=== PATIENT | male | born 1985 | race Caucasian/White ===

== ENCOUNTER 2016-09-15 18:48 | Inpatient (IN) | payer OTHER ==
[2016-09-15] VITALS (178 sets, daily range): BP systolic 126–145; BP diastolic 60–88; PULSE 68–82; TEMP 97.9–98.1; O2SAT 95–99
[~2016-09-15] VITALS: Ht 177.8 cm; Wt 116.8 kg
[2016-09-15] MEDS ORDERED: DESYREL 50MG50 MG PO (19:49)
[2016-09-15] MEDS ORDERED: NORVASC2.5 MG PO (19:49)
[2016-09-15] MEDS ORDERED: HCTZ12.5TAB PO (19:49)
[2016-09-15] MEDS ORDERED: LAMICTAL CD5 MG PO (19:50)
[2016-09-15 20:45] LABS: PARTIAL THROMBOPLASTIN TIME 182.4 SECONDS (26.0-37.0)
[2016-09-15] MEDS ORDERED: LAMICTAL200 MG PO (21:59)
[2016-09-15 23:15] LABS: PARTIAL THROMBOPLASTIN TIME 34.7 SECONDS (26.0-37.0)
[2016-09-16] VITALS (566 sets, daily range): BP systolic 101–142; BP diastolic 68–100; PULSE 64–134; TEMP 97.6–98; O2SAT 92–100
[2016-09-16 06:18] LABS: BASO # 0.1 (0.0-0.2); BASO % 0.6 % (0.0-2.0); EOS # 0.1 (0.0-0.7); EOS % 1.1 % (0-4.0); GRAN # 4.4 (1.4-6.5); GRAN % 55.2 % (42.2-75.2); HEMATOCRIT 48.4 % (42.0-52.0); HEMOGLOBIN 16.5 g/dl (13.5-18.0); LYMPH # 2.8 (1.2-3.4); LYMPH % 34.5 % (20.0-51.0); MEAN CELL VOLUME 83 fl (80.0-100.0); MEAN CORPUSCULAR HEMOGLOBIN 28 pg (27.0-31.0); MEAN CORPUSCULAR HGB CONC 34 g/dl (33.0-37.0); MEAN PLATELET VOLUME 9.5 fl (7.4-10.4); MONO # 0.6 (0.1-0.6); PLATELET COUNT 214 K/mm3 (130-400); RED BLOOD COUNT 5.82 M/mm3 (4.20-5.60); REDCELL DISTRIBUTION WIDTH-CV 13.1 % (11.5-14.5)
[2016-09-16 06:29] LABS: ADJUSTED CALCIUM 9.1 mg/dL (8.4-10.2); ALANINE AMINOTRANSFERASE 32 U/L (21-72); ALBUMIN 4.1 gm/dL (3.5-5.0); ALKALINE PHOSPHATASE 60 U/L (50-136); ANION GAP 10 mmol/L (7-16); BLOOD UREA NITROGEN 17 mg/dL (9-20); CALCIUM 9.2 mg/dL (8.4-10.2); CARBON DIOXIDE 27 mmol/L (22-30); CHLORIDE 104 mmol/L (98-107); CREATININE, serum 1.04 mg/dL (0.66-1.25); GLUCOSE 101 mg/dL (74-106); POTASSIUM 4.1 mmol/L (3.4-5.0); SODIUM 141 mmol/L (137-145); TOTAL PROTEIN 6.8 gm/dL (6.4-8.2)
[2016-09-16 06:46] LABS: TROPONIN-I < 0.012 ng/mL (0.000-0.034)
[2016-09-16] MEDS ORDERED: PROTONIX 40MG T40 MG PO (15:10)
[2016-09-16] MEDS ORDERED: CARDIZEM 60MG T60 MG PO (15:10)
[2016-09-16] MEDS ORDERED: ELIQUIS 5MG PO (15:12)
[2016-09-16] MEDS ORDERED: MULTAQ400 MG PO (16:13)
[2016-09-16 16:51] LABS: BILIRUBIN,DIRECT 0.7 mg/dL (0.0-0.4)
== END 2016-09-16 16:56 | disposition home or self-care (01) | DRG 310 ==
LOC: IMCU 18:48
PROVIDERS: Internal Medicine
PROC: 5A2204Z Restoration of Cardiac Rhythm, Single (ICD-10-PCS; principal; 2016-09-16)
DX: I48.91 Unspecified atrial fibrillation (principal); I10 Essential (primary) hypertension
CPT/HCPCS: 99223-AI; 99239; J1644; J2175; J2250; J7030; J7050